=== PATIENT | female | born 1955 | race Caucasian/White ===

== ENCOUNTER 2019-10-19 14:20 | Outpatient (CLI) | payer MEDICARE ==
[2019-10-20 11:23] VITALS: BMI 24.5
== END 2019-10-19 16:48 | disposition other institution (70) ==
LOC: D.OPS 14:20
PROVIDERS: ATTEND Internal Medicine Nephrology
DX: N17.9 Acute kidney failure, unspecified (principal); I21.4 Non-ST elevation (NSTEMI) myocardial infarction; E43 Unspecified severe protein-calorie malnutrition; F17.203 Nicotine dependence unspecified, with withdrawal; E11.22 Type 2 diabetes mellitus with diabetic chronic kidney disease; I12.9 Hypertensive chronic kidney disease with stage 1 through stage 4 chronic kidney disease, or unspecified chronic kidney disease; N18.9 Chronic kidney disease, unspecified; I25.10 Atherosclerotic heart disease of native coronary artery without angina pectoris; Z68.24 Body mass index [BMI] 24.0-24.9, adult; E78.5 Hyperlipidemia, unspecified; Z86.73 Personal history of transient ischemic attack (TIA), and cerebral infarction without residual deficits; R07.9 Chest pain, unspecified

== ENCOUNTER 2019-10-19 14:20 | Inpatient (IN) | payer MEDICARE ==
[~2019-10-19] VITALS: Ht 149.9 cm; Wt 56.5 kg
[2019-10-19 15:04] LABS: CALC OSMOLALITY 290 mosm/kg (275-300); CALCIUM 7.6 mg/dL (8.5-10.1); CARBON DIOXIDE 21.3 mmol/L (21.0-32.0); CHLORIDE - SERUM 108 mmol/L (98-107); CREATININE - SERUM 2.6 mg/dL (0.6-1.3); GLUCOSE 118 mg/dL (74-106); POTASSIUM - SERUM 4.4 mmol/L (3.5-5.1); SODIUM 137 mmol/L (136-145); UREA NITROGEN 57 mg/dL (7-18); eGFR NON AFRICAN AMERICAN 20 mL/min (90-120)
[2019-10-19 15:17] LABS: BASOPHILS 0.3 % (0-2); EOSINOPHILS 5.7 % (0-7); HEMATOCRIT 38.9 % (36.0-48.0); HEMOGLOBIN 13.1 g/dL (12-16); IMMATURE GRANULOCYTES 0.3 % (0-5); LYMPHOCYTES 31.4 % (15-50); MCH 31.3 pg (26.0-34.0); MCHC 33.7 g/dL (31.0-37.0); MCV 93.1 fL (80.0-100.0); MEAN PLATELET VOLUME 9.7 fL (7.4-10.4); MONOCYTES 5.8 % (2-11); NEUTROPHILS 56.5 % (40-80); PLATELET COUNT 154 10x3/uL (130-400); RBC 4.18 10x6/uL (4.00-5.40); RDW 13.9 % (11.5-14.5); WBC 5.8 10x3/uL (4.8-10.8)
[2019-10-19 15:25] LABS: ALBUMIN 2.3 g/dL (3.4-5.0); ALKALINE PHOSPHATASE 34 U/L (30-120); ALT (SGPT) 31 U/L (10-68); BILIRUBIN - TOTAL 0.36 mg/dL (0.2-1.3); CKMB 3.6 U/L (0.0-3.6); CREATINE KINASE 559 UL (21-215); MAGNESIUM - SERUM 2.1 mg/dL (1.8-2.4); PROTEIN - SERUM 5.3 g/dL (6.4-8.2)
[2019-10-19 15:26] LABS: TROPONIN-I 0.097 ng/mL (0.000-0.060)
[2019-10-19 15:28] LABS: INR 1.04 (0.85-1.17); PROTIME 13.5 SECONDS (11.6-15.0)
[2019-10-19 18:32] VITALS: BP 156/74; BMI 24.5
--- NOTE | 2019-10-19 19:56 | NUR ---
INITIAL ROUNDS AND ASSESSMENT COMPLETED. NO DISTRESS. CALL LIGHT IN REACH. CPOC
[2019-10-19 20:30] VITALS: BP 141/65
[2019-10-20 00:30] VITALS: BP 114/75
--- NOTE | 2019-10-20 01:08 | NUR ---
MEDICATED WITH TYLENOL FOR HEADACHE. ALSO PT HAD C/O HER URINE BEING WHITE. HAT PLACED ON TOILET AND SPECIMEN OBTAINED. URINE IS WHITE/MILKY IN COLOR. NO ODOR NOTED. PT STATES THIS HAS BEEN GOING ON FOR 3 MONTHS. SPECIMEN TAKEN TO LAB.
[2019-10-20 01:09] LABS: NITRITE NEGATIVE (NEGATIVE)
[2019-10-20 01:10] LABS: BILIRUBIN NEGATIVE (NEGATIVE); GLUCOSE 500 mg/dL (NEGATIVE); KETONE SMALL mg/dL (NEGATIVE); UROBILINOGEN NORMAL (NORMAL); WHITE CELLS - URINE RARE /hpf (NEGATIVE)
[2019-10-20 03:46] LABS: BASOPHILS 0.4 % (0-2); EOSINOPHILS 6.1 % (0-7); HEMATOCRIT 36.4 % (36.0-48.0); HEMOGLOBIN 12.1 g/dL (12-16); IMMATURE GRANULOCYTES 0.2 % (0-5); LYMPHOCYTES 31.3 % (15-50); MCH 31.3 pg (26.0-34.0); MCHC 33.2 g/dL (31.0-37.0); MCV 94.3 fL (80.0-100.0); MEAN PLATELET VOLUME 10.2 fL (7.4-10.4); MONOCYTES 6.3 % (2-11); NEUTROPHILS 55.7 % (40-80); PLATELET COUNT 162 10x3/uL (130-400); RBC 3.86 10x6/uL (4.00-5.40); WBC 5.4 10x3/uL (4.8-10.8)
[2019-10-20 04:17] LABS: CHLORIDE - SERUM 110 mmol/L (98-107); CREATININE - SERUM 2.9 mg/dL (0.6-1.3); POTASSIUM - SERUM 4.2 mmol/L (3.5-5.1); SODIUM 137 mmol/L (136-145); UREA NITROGEN 55 mg/dL (7-18); eGFR NON AFRICAN AMERICAN 17 mL/min (90-120)
[2019-10-20 04:19] LABS: CALC OSMOLALITY 292 mosm/kg (275-300); CALCIUM 7.1 mg/dL (8.5-10.1); CARBON DIOXIDE 13.2 mmol/L (21.0-32.0); GLUCOSE 166 mg/dL (74-106); TROPONIN-I 0.087 ng/mL (0.000-0.060)
[2019-10-20 04:30] VITALS: BP 164/77
--- NOTE | 2019-10-20 05:23 | NUR ---
PT HAS BEEN NPO SINCE MIDNIGHT UNTIL SEEN BY SAFETY INTERN IN AM. C/O SOME TINY POINTS OF PAIN IN HER CHEST THAT COME AND GO, BUT NEVER REQUESTING ANY PAIN MEDICATION. UP AND DOWN TO BATHROOM INDEPENDENTLY. CPOC.
[2019-10-20 06:01] LABS: CKMB 3.1 U/L (0.0-3.6); CREATINE KINASE 501 UL (21-215)
--- NOTE | 2019-10-20 07:40 | NUR ---
PROVIDED PT WITH TOOTHBRUSH AND TOOTHPASTE. PT A/O X4, RESP EVEN AND NONLABORED ON RA. RT FA IV INFUSING NS AT 100CC/HR. MONITOR SHOWING SR WITH RATE OF 61. PT DENIES ANY NEEDS AT THIS TIME. CALL LIGHT IN REACH, NAD NOTED, WILL CONTINUE TO MONITOR.
[2019-10-20 08:48] VITALS: BP 172/86
--- NOTE | 2019-10-20 10:03 | NUR ---
CONSENTS SIGNED BY AND PRE-OP MEDS GIVEN AT THIS TIME. PT'S CONTACTED AND NOTIFIED ABOUT PROCEDURE SCHEDULED FOR TODAY.
--- NOTE | 2019-10-20 11:18 | NUR ---
BLOOD SUGAR OF 114, NO COVERAGE NEEDED PER S/S. PT RESTING COMFORTABLY IN BED, DENIES ANY NEEDS AT THIS TIME. CALL LIGHT IN REACH, NAD NOTED,W ILL CONTINUE TO MONITOR.
[2019-10-20 11:23] VITALS: Ht 149.9 cm; Wt 56.5 kg
[2019-10-20 12:06] LABS: CREATINE KINASE 472 UL (21-215)
[2019-10-20 12:16] LABS: TROPONIN-I 0.089 ng/mL (0.000-0.060)
[2019-10-20 12:59] VITALS: BP 183/89
--- NOTE | 2019-10-20 13:41 | NUR ---
WAS INFORMED BY DR. MCKINLEY THAT HEART CATH WAS CANCELLED FOR TODAY. NOTIFIED PT AND WILL NOTIFY PT'S .
[2019-10-20 16:58] LABS: BILIRUBIN NEGATIVE (NEGATIVE); GLUCOSE 250 mg/dL (NEGATIVE); KETONE NEGATIVE (NEGATIVE); NITRITE NEGATIVE (NEGATIVE); UROBILINOGEN NORMAL (NORMAL)
[2019-10-20 17:00] LABS: BACTERIA FEW /hpf (NEGATIVE); EPITHELIAL CELLS 0-5 /hpf (0-5)
[2019-10-20 17:12] LABS: CREATININE - URINE 32.8 mg/dL (30-125)
[2019-10-20 17:16] LABS: PRO/CRE RATIO URINE 13.6 mg/g; PROTEIN - URINE 447.2 mg/dL (0.0-11.9)
[2019-10-20 18:04] VITALS: BP 147/73
[2019-10-20 18:23] LABS: CKMB 2.6 U/L (0.0-3.6); CREATINE KINASE 417 UL (21-215)
[2019-10-20 18:28] LABS: TROPONIN-I 0.084 ng/mL (0.000-0.060)
[2019-10-20 20:00] VITALS: BP 199/74
--- NOTE | 2019-10-20 20:00 | NUR ---
INITIAL ROUNDS AND ASSESSMENT COMPLETED. NO DISTRESS. NONLABORED RESPIRATIONS. SEE SHIFT ASSESSMENT. CPOC. CALL LIGHT IN REACH.
[2019-10-21] VITALS: BP 177/76
[2019-10-21 04:00] VITALS: BP 137/62
[2019-10-21 06:51] LABS: BASOPHILS 0.4 % (0-2); EOSINOPHILS 5.4 % (0-7); HEMATOCRIT 37.7 % (36.0-48.0); HEMOGLOBIN 12.6 g/dL (12-16); IMMATURE GRANULOCYTES 0.2 % (0-5); LYMPHOCYTES 26.8 % (15-50); MCH 31.2 pg (26.0-34.0); MCHC 33.4 g/dL (31.0-37.0); MCV 93.3 fL (80.0-100.0); MEAN PLATELET VOLUME 10.1 fL (7.4-10.4); MONOCYTES 8.7 % (2-11); NEUTROPHILS 58.5 % (40-80); PLATELET COUNT 162 10x3/uL (130-400); RBC 4.04 10x6/uL (4.00-5.40); RDW 13.8 % (11.5-14.5); WBC 5.2 10x3/uL (4.8-10.8)
[2019-10-21 07:13] LABS: ANION GAP 12.3 mmol/L (8-16); BILIRUBIN - TOTAL 0.14 mg/dL (0.2-1.3); CALCIUM 7.7 mg/dL (8.5-10.1); CREATININE - SERUM 2.4 mg/dL (0.6-1.3); MAGNESIUM - SERUM 1.8 mg/dL (1.8-2.4); POTASSIUM - SERUM 4.3 mmol/L (3.5-5.1); PROTEIN - SERUM 4.9 g/dL (6.4-8.2)
--- NOTE | 2019-10-21 07:55 | NUR ---
4MG OF MORPHINE GIVEN FOR PAIN LEVEL OF 4/10. PT DENIES ANY OTHER NEEDS AT THIS TIME. CALL LIGHT IN REACH, NAD NOTED, WILL CONTINUE PLAN OF CAER.
[2019-10-21 10:37] VITALS: BP 135/63
--- NOTE | 2019-10-21 11:07 | NUR ---
BLOOD SUGAR OF 125, NO COVERAGE PER S/S. PER DR. MCKINLEY HEART CATH IS ON HOLD. PT DENIES ANY NEED AT THIS TIME. CALL LIGHT IN REACH, NAD NOTED, WILL CONTINUE TO MONITOR.
[2019-10-21 12:30] LABS: CKMB 2.3 U/L (0.0-3.6); CREATINE KINASE 374 UL (21-215)
[2019-10-21 12:31] LABS: TROPONIN-I 0.101 ng/mL (0.000-0.060)
[2019-10-21 14:17] VITALS: BP 186/74
--- NOTE | 2019-10-21 14:29 | NUR ---
SHOWER AND COMPLETE LINEN CHANGE.
[2019-10-21 18:29] LABS: CKMB 0.4 U/L (0.0-3.6); CREATINE KINASE 19 UL (21-215); TROPONIN-I 0.097 ng/mL (0.000-0.060)
--- NOTE | 2019-10-21 19:19 | NUR ---
ASSESSMENT COMPLETE, PT A&O. RESPERATIONS EVEN ON RA. IV TO RIGHT FOREARM WITH 1/2 NS AND BICARB INFUSING AT 75 CC/HR. IV SITE CLEAN AND DRY. EMPTIED 800 CC'S OF WHITE, CLOUDY URINE FROM HAT IN COMMODE. AT BED SIDE, BED LOW, CL IN REACH. PT DENIES PAIN OR NEEDS.
[2019-10-21 20:00] VITALS: BP 172/83
--- NOTE | 2019-10-21 23:28 | NUR ---
ORTHOPEDIC PODIATRIST AT BED SIDE TO OBTAIN VITALS.
[2019-10-21 23:41] LABS: CKMB 2.1 U/L (0.0-3.6)
[2019-10-21 23:42] LABS: CREATINE KINASE 339 UL (21-215); TROPONIN-I 0.089 ng/mL (0.000-0.060)
[2019-10-22] VITALS: BP 150/80
[2019-10-22 04:00] VITALS: BP 158/85
[2019-10-22 06:17] LABS: BASOPHILS 0.2 % (0-2); HEMATOCRIT 37.1 % (36.0-48.0); HEMOGLOBIN 12.3 g/dL (12-16); IMMATURE GRANULOCYTES 0.2 % (0-5); LYMPHOCYTES 27.7 % (15-50); MCH 30.8 pg (26.0-34.0); MCHC 33.2 g/dL (31.0-37.0); MCV 92.8 fL (80.0-100.0); MONOCYTES 7.7 % (2-11); NEUTROPHILS 60.2 % (40-80); PLATELET COUNT 164 10x3/uL (130-400); RDW 13.8 % (11.5-14.5); WBC 5.5 10x3/uL (4.8-10.8)
[2019-10-22 06:31] LABS: ALBUMIN 2.2 g/dL (3.4-5.0); BILIRUBIN - TOTAL 0.17 mg/dL (0.2-1.3); CALCIUM 7.5 mg/dL (8.5-10.1); CARBON DIOXIDE 25.4 mmol/L (21.0-32.0); MAGNESIUM - SERUM 1.8 mg/dL (1.8-2.4); POTASSIUM - SERUM 4.4 mmol/L (3.5-5.1); PROTEIN - SERUM 4.6 g/dL (6.4-8.2)
--- NOTE | 2019-10-22 06:58 | NUR ---
ASSESSMENT DONE. DENIES NEEDS
--- NOTE | 2019-10-22 09:09 | NUR ---
I have reviewed this patient and I concur with the Shift Assessment completed by the Licensed Practical Nurse today this shift.
[2019-10-22 09:30] VITALS: BP 140/71
[2019-10-22 11:52] VITALS: BP 153/89
[2019-10-22 13:44] LABS: CALCIUM 7.1 mg/dL (8.5-10.1); CARBON DIOXIDE 25.4 mmol/L (21.0-32.0); CREATININE - SERUM 3.4 mg/dL (0.6-1.3); POTASSIUM - SERUM 4.4 mmol/L (3.5-5.1)
--- NOTE | 2019-10-22 17:08 | NUR ---
WITHOUT CHANGES OR DISTRESS NOTED AT THIS TIME. DENIES NEEDS
[2019-10-22 17:47] VITALS: BP 161/78
[2019-10-22 20:00] VITALS: BP 178/79
[2019-10-23] VITALS: BP 180/75
--- NOTE | 2019-10-23 02:40 | NUR ---
I have reviewed this patient and I concur with the Shift Assessment completed by the Licensed Practical Nurse today this shift.
[2019-10-23 04:00] VITALS: BP 184/87
[2019-10-23 06:32] LABS: BASOPHILS 0.4 % (0-2); EOSINOPHILS 5.6 % (0-7); HEMATOCRIT 38.3 % (36.0-48.0); HEMOGLOBIN 12.7 g/dL (12-16); IMMATURE GRANULOCYTES 0.4 % (0-5); LYMPHOCYTES 30.2 % (15-50); MCH 30.8 pg (26.0-34.0); MCHC 33.2 g/dL (31.0-37.0); MEAN PLATELET VOLUME 10.1 fL (7.4-10.4); MONOCYTES 7.4 % (2-11); PLATELET COUNT 173 10x3/uL (130-400); RBC 4.12 10x6/uL (4.00-5.40); RDW 13.7 % (11.5-14.5); WBC 5.7 10x3/uL (4.8-10.8)
[2019-10-23 06:52] LABS: ALBUMIN 2.3 g/dL (3.4-5.0); ANION GAP 13.5 mmol/L (8-16); BILIRUBIN - TOTAL 0.2 mg/dL (0.2-1.3); CALCIUM 7.8 mg/dL (8.5-10.1); CARBON DIOXIDE 21.7 mmol/L (21.0-32.0); CREATININE - SERUM 2.7 mg/dL (0.6-1.3); MAGNESIUM - SERUM 1.9 mg/dL (1.8-2.4); POTASSIUM - SERUM 4.2 mmol/L (3.5-5.1); PROTEIN - SERUM 5.2 g/dL (6.4-8.2)
--- NOTE | 2019-10-23 07:24 | NUR ---
ASSESSMENT DONE. DENIES NEEDS
[2019-10-23 08:11] LABS: HEPATITIS C ANTIBODY <0.1 S/CO RAT (0.0-0.9)
[2019-10-23 09:25] VITALS: BP 166/71
--- NOTE | 2019-10-23 09:26 | NUR ---
I have reviewed this patient and I concur with the Shift Assessment completed by the Licensed Practical Nurse today this shift.
[2019-10-23 10:10] LABS: CREATININE - URINE 30.6 mg/dL (Not Estab.); MICROALBUMIN - URINE 1957.3 ug/mL (Not Estab.)
--- NOTE | 2019-10-23 12:23 | NUR ---
PAGE INTO ESTIVEN DESOUZA APN PATIENT IS NOT ON ANY MEDS FOR NSTEMI DX. AWAITING CALL BACK.
--- NOTE | 2019-10-23 12:26 | NUR ---
ESTIVEN DESOUZA APN TO CALL BACK WITH NEW ORDERS.
[2019-10-23] MEDS ORDERED: BAYER CHEWABLE81 MG PO (12:28)
[2019-10-23] MEDS ORDERED: LIPITOR20 MG PO (12:30)
[2019-10-23] MEDS ORDERED: LOPRESSOR25 MG PO (12:31)
[2019-10-23 13:15] VITALS: BP 145/85
--- NOTE | 2019-10-23 13:55 | NUR ---
DC GIVEN TP PT
--- NOTE | 2019-10-23 14:10 | NUR ---
DC HOME PER PERSONAL CAR
--- NOTE | 2019-10-23 15:47 | MORECARE ---
CASE MANAGEMENT DISCHARGE SUMMARY PATIENT: KELSEA JONES UNIT: [id number] ADM DATE: 10/19/19 AGE: 64 : 53 SEX: F ROOM/BED: D.0256 AUTHOR: JASWANT,DOC PHYSICIAN: REFERRING PHYSICIAN: KERRY PEREYRA MD DATE OF SERVICE: 10/23/19 Discharge Plan Patient Name: KELSEA JONES Facility: [facility]:[place] : 1955 Planned Disposition: Home Anticipated Discharge Date: 10/23/19 Discharge Date: 10/23/2019 Expected LOS: 4 Initial Reviewer: [email or web address] Initial Review Date: 10/19/2019 Generated: 10/23/19 4:46 pm Comments DCP- Discharge Planning Updated by [email or web address]: Bren Mendez on 10/23/19 2:[address] Patient Name: KELSEA JONES Admission Status: ER Accout number: [id number] Admission Date: 10-19-2019 : 1955 Admission Diagnosis: Attending: KERRY PEREYRA Current LOS: 4 Anticipated DC Date: 10-23-2019 Planned Disposition: Home Primary Insurance: MEDICARE PART A ONLY Discharge Planning Comments: CM met with patient to complete initial dc planning assessment. CM educated patient on the CM role and verbal consent given by patient to complete assessment. CM verified patient's address, phone number, and emergency contact phone numbers. Patient lives at home with Candy her [phone]. At discharge patient plans to return and feels this is a safe discharge. CM discussed availability of home health, rehab services, and medical equipment. Patient denied known discharge needs at this time. Transportation provider at discharge will be her . DC IMM delivered, explained, signed by the patient, and placed in his chart. Signed form also left with patient. CM will continue to follow and will assist as needed with dc plans/needs. Ceramic Sprayer: Bren Mendez DCPIA - Discharge Planning Initial Assessment Updated by [email or web address]: Bren Mendez on 10/23/19 3:43 pm * Is the patient Alert and Oriented? Yes * How many steps to enter\exit or inside your home? 0/0 * PCP [facility] * Pharmacy [facility] * Preadmission Environment Home with Family * ADLs Independent * List name and contact numbers for known caregivers / representatives who currently or will assist patient after discharge: CANDY [phone] * Verbal permission to speak to the caregivers and representatives has been obtained from the patient. Yes * Community resources currently utilized None * Additional services required to return to the preadmission environment? No * Can the patient safely return to the preadmission environment? Yes * Has this patient been hospitalized within the prior 30 days at any hospital? No Coverage Notice Reviewer: [id number] Kwame Mendez Notice Issued Date-Time: 10/23/2019 15:38 Notice Type: IM Discharge Notice Notice Delivered To: Patient Relationship to Patient: Inspector Barrel Name: Delivery Method: HAND - Hand Delivered Gi Days: Prior Verbal Notification: Recipient Understood Notice: Yes Recipient Signature: Yes Med Rec Note Co-signed by Attending: Coverage Notice Comment: DC IMM delivered, explained, signed by the patient, and placed in his chart. Signed form also left with patient. Patient Name: KELSEA JONES Page [phone] at 1547 All edits/amendments must be made on the electronic document DICTATION DATE: 10/23/191545 SEISMOLOGY TEACHER: PATIENCE 10/23/19 154 RPT#: [id number] DC DATE:10/23/19 STATUS: DIS IN [facility] [address] [place] [address] END OF REPORT
== END 2019-10-23 14:11 | disposition home or self-care (01) | DRG 682 ==
LOC: D.ER 14:20 → D.M2 16:48 → D.ER 17:10 → D.M2 10-23 14:11
PROVIDERS: Family Medicine; Internal Medicine; ADMIT Internal Medicine Nephrology; ATTEND Internal Medicine Nephrology
DX: N17.9 Acute kidney failure, unspecified (principal); I21.4 Non-ST elevation (NSTEMI) myocardial infarction; E43 Unspecified severe protein-calorie malnutrition; F17.203 Nicotine dependence unspecified, with withdrawal; E11.22 Type 2 diabetes mellitus with diabetic chronic kidney disease; I12.9 Hypertensive chronic kidney disease with stage 1 through stage 4 chronic kidney disease, or unspecified chronic kidney disease; N18.9 Chronic kidney disease, unspecified; I25.10 Atherosclerotic heart disease of native coronary artery without angina pectoris; Z68.24 Body mass index [BMI] 24.0-24.9, adult; E78.5 Hyperlipidemia, unspecified; Z86.73 Personal history of transient ischemic attack (TIA), and cerebral infarction without residual deficits

== ENCOUNTER 2020-03-08 22:25 | Inpatient (IN) | payer MEDICAID, MEDICARE ==
[~2020-03-08] VITALS: Ht 149.9 cm; Wt 64.1 kg
--- NOTE | ~2020-03-08 | OP ---
PATIENT NAME: KELSEA JONES MEDICAL RECORD: [id number] :53 LOCATION:.[facility] D.2315 ADMISSION DATE:03/08/20 SURGEON: STEVEN MICHELLE MD DATE OF OPERATION: 03/12/2020 PREOPERATIVE DIAGNOSES: 1. Hypotension, on pressors. 2. Septic shock. 3. COVID-19. POSTOPERATIVE DIAGNOSES: 1. Hypotension, on pressors. 2. Septic shock. 3. COVID-19. PROCEDURE: Placement of right common femoral arterial line for continuous hemodynamic monitoring. SURGEON: Steven Michelle MD ROLL FILLER: None. BLOOD LOSS: Minimal. ANESTHESIA: Local. INDICATION: The procedure was performed at the patient's bedside. The patient has small blood vessels. I know this from prior attempts at placement of venous catheter. Therefore, I wanted to place a line in the groin. She does not have a significant panniculus and does not have a lot of overlapping skin, which could predispose her to a line infection. DESCRIPTION OF PROCEDURE: The right groin was sterilely prepped and draped. A local anesthetic was used to infiltrate the skin and subcutaneous tissues overlying the right common femoral artery. I percutaneously accessed the right common femoral artery in a retrograde fashion. A guidewire passed easily. A small skin mila was accomplished. An Angiocath-type catheter was inserted over the wire. This was a long catheter. The wire was removed. There was pulsatile blood coming from the long catheter. This was attached to a flushed transducer tubing. The arterial line was then sutured in place times 3. There was an excellent waveform on the monitor. A sterile dressing was applied. NTS:[id number] Voice Confirmation ID: [id number] DOCUMENT ID: [id number] STEVEN MICHELLE MD CC: [id number] DICTATION DATE: 03/19/20 1521 SAILING MASTER: 03/19/20 1828 DIS IN 03/17/20 [facility] [address] [place] [id number]
--- NOTE | ~2020-03-08 | OP ---
PATIENT NAME: KELSEA JONES MEDICAL RECORD: [id number] :53 LOCATION:D.[facility] D.2315 ADMISSION DATE:03/08/20 SURGEON: RUDY GIFFORD MD DATE OF OPERATION: 03/14/2020 PREOPERATIVE DIAGNOSES: 1. Right pneumothorax. 2. COVID positive. 3. Acute respiratory failure, on the ventilator. 4. Sdgxo-fm-meixkfy kidney disease. POSTOPERATIVE DIAGNOSES: 1. Right pneumothorax. 2. COVID positive. 3. Acute respiratory failure, on the ventilator. 4. Wusku-yb-iyfwnjn kidney disease. PROCEDURE: Right 20-Latvian chest tube placement. SURGEON: Rudy Gifford MD REPORT OF PROCEDURE: The patient's right chest was prepped and draped in sterile fashion. A skin incision was made with a 15-blade and using blunt dissection I came up to the ribs. I was able to insert a 20-Latvian chest tube with the catheter into the right chest and upon doing this there was a spillage of a decent amount of air and no sign of any active bleeding. We sutured this chest tube into place with an 0 nylon and then dressed it with 4 x 4s and tape. [facility], which had a leak temporarily which quickly resolved. COMPLICATIONS: None. CONDITION: Critical. ANESTHESIA: General endotracheal. BLOOD LOSS: Minimal. Procedure done in the ICU at the bedside. TRANSINT:[id number] Voice Confirmation ID: [id number] DOCUMENT ID: [id number] RUDY GIFFORD MD CC: [id number] DICTATION DATE: 03/14/20 1315 WORLDWIDE CHIEF CREATIVE OFFICER: 03/14/20 1450 ADM IN [place] [id number] [place] [address]
[~2020-03-08 22:25] MED LIST: BAYER CHEWABLE81 MG PO; LIPITOR20 MG PO; LOPRESSOR25 MG PO
[2020-03-08 22:30] VITALS: BP 145/86
[2020-03-08 23:00] VITALS: BP 152/80
[2020-03-08 23:20] VITALS: BMI 22.7
[2020-03-09] VITALS (24 sets, daily range): BP systolic 126–183; BP diastolic 75–97; BMI 22.0
--- NOTE | 2020-03-09 | NUR ---
2229- PATIENT ARRIVED VIA EMS. LABORED BREATHING. NON-REBREATHER ON AND NC ON AT 6L. REC'D ABG AND NEW ORDERS FROM DR. DRUMMOND.
[2020-03-09 00:18] LABS: D-DIMER-QUANTITATIVE 1.56 ug/mLFEU (0.20-0.54)
[2020-03-09 00:19] LABS: APTT 42.5 SECONDS (22.8-39.4); INR 1.43 (0.85-1.17); PROTIME 17.3 SECONDS (11.6-15.0)
[2020-03-09 01:02] LABS: CKMB 14.5 U/L (0.0-3.6); CREATINE KINASE 401 UL (21-215); MAGNESIUM - SERUM 3.2 mg/dL (1.8-2.4); PRO BNP 3131 pg/mL (0-125)
[2020-03-09 01:16] LABS: TROPONIN-I 0.093 ng/mL (0.000-0.060)
[2020-03-09 01:20] LABS: CALCIUM 8.5 mg/dL (8.5-10.1); CREATININE - SERUM 4.7 mg/dL (0.6-1.3); POTASSIUM - SERUM 5.8 mmol/L (3.5-5.1)
[2020-03-09 01:21] LABS: ANION GAP 22.5 mmol/L (8-16)
[2020-03-09 01:22] LABS: CARBON DIOXIDE 9.3 mmol/L (21.0-32.0)
[2020-03-09 07:21] LABS: ALBUMIN 1.6 g/dL (3.4-5.0); ALKALINE PHOSPHATASE 89 U/L (30-120); ALT (SGPT) 31 U/L (10-68); BILIRUBIN - TOTAL 0.21 mg/dL (0.2-1.3); CALCIUM 8.3 mg/dL (8.5-10.1); CREATINE KINASE 428 UL (21-215); CREATININE - SERUM 5.1 mg/dL (0.6-1.3); GLUCOSE 273 mg/dL (74-106); MAGNESIUM - SERUM 3.3 mg/dL (1.8-2.4); PROTEIN - SERUM 5.2 g/dL (6.4-8.2); eGFR NON AFRICAN AMERICAN 9 mL/min (90-120)
--- NOTE | 2020-03-09 07:25 | NUR ---
PAGED DR LYN. AWAITING CALL BACK.
[2020-03-09 07:26] LABS: CALC OSMOLALITY 375 mosm/kg (275-300); CARBON DIOXIDE 14.6 mmol/L (21.0-32.0); CHLORIDE - SERUM 137 mmol/L (98-107); CKMB 20.6 U/L (0.0-3.6); SODIUM 167 mmol/L (136-145); TROPONIN-I 0.096 ng/mL (0.000-0.060); UREA NITROGEN 114 mg/dL (7-18)
[2020-03-09 07:52] LABS: HEMOGLOBIN 10.9 g/dL (12-16); MCH 30.4 pg (26.0-34.0); MCV 92.2 fL (80.0-100.0); PLATELET COUNT 165 10x3/uL (130-400); RBC 3.58 10x6/uL (4.00-5.40); RDW 15.4 % (11.5-14.5)
--- NOTE | 2020-03-09 09:24 | NUR ---
PAGED RENAL OFFICE. THEY STATED THEY WOULD HAVE DR DESHPANDE CALL BACK.
--- NOTE | 2020-03-09 09:59 | NUR ---
RENAL FINANCIAL AID MANAGER SPEAKING WITH . GIVING UPDATE. WILL CONTINUE TO MONITOR
[2020-03-09 11:09] LABS: CALCIUM 8.1 mg/dL (8.5-10.1); CARBON DIOXIDE 12.4 mmol/L (21.0-32.0)
[2020-03-09 11:13] LABS: ANION GAP 21.3 mmol/L (8-16); POTASSIUM - SERUM 4.7 mmol/L (3.5-5.1)
[2020-03-09 11:41] LABS: BACTERIA FEW HPF (NONE SEEN); BILIRUBIN NEGATIVE (NEGATIVE); EPITHELIAL CELLS OCC /hpf (0-5); KETONE NEGATIVE (NEGATIVE); NITRITE NEGATIVE (NEGATIVE); UROBILINOGEN NORMAL mg/dL (< 2); YEAST >1+ WITH HYPHAE /hpf (NONE SEEN)
[2020-03-09 12:19] LABS: ANISOCYTOSIS OCC; LYMPHOCYTES 8 % (15-50); MONOCYTES 7 % (2-11); NEUTROPHILS 82 % (40-80); PLATELET ESTIMATE NORMAL
[2020-03-09 17:29] LABS: CALCIUM 8.7 mg/dL (8.5-10.1); CARBON DIOXIDE 13.5 mmol/L (21.0-32.0); CKMB 16.2 U/L (0.0-3.6); CREATINE KINASE 429 UL (21-215); CREATININE - SERUM 5.1 mg/dL (0.6-1.3); GLUCOSE 283 mg/dL (74-106); POTASSIUM - SERUM 4.8 mmol/L (3.5-5.1); eGFR NON AFRICAN AMERICAN 9 mL/min (90-120)
[2020-03-09 17:31] LABS: CALC OSMOLALITY 382 mosm/kg (275-300)
[2020-03-09 17:32] LABS: TROPONIN-I 0.155 ng/mL (0.000-0.060)
[2020-03-09 17:33] LABS: CHLORIDE - SERUM 136 mmol/L (98-107); SODIUM 167 mmol/L (136-145); UREA NITROGEN 133 mg/dL (7-18)
[2020-03-09 21:24] LABS: CALCIUM 8.3 mg/dL (8.5-10.1); POTASSIUM - SERUM 4.1 mmol/L (3.5-5.1)
[2020-03-09 21:43] LABS: ANION GAP 20.5 mmol/L (8-16); CARBON DIOXIDE 17.6 mmol/L (21.0-32.0)
[2020-03-10] VITALS (17 sets, daily range): BP systolic 106–167; BP diastolic 31–117
[2020-03-10 02:10] LABS: CALCIUM 8.3 mg/dL (8.5-10.1); CARBON DIOXIDE 19.9 mmol/L (21.0-32.0); CREATININE - SERUM 4.9 mg/dL (0.6-1.3); POTASSIUM - SERUM 4.2 mmol/L (3.5-5.1)
[2020-03-10 02:12] LABS: ANION GAP 17.3 mmol/L (8-16)
[2020-03-10 06:07] LABS: HEMATOCRIT 28.9 % (36.0-48.0); HEMOGLOBIN 9.6 g/dL (12-16); RBC 3.24 10x6/uL (4.00-5.40); WBC 21.2 10x3/uL (4.8-10.8)
[2020-03-10 06:08] LABS: MCH 29.6 pg (26.0-34.0); MCHC 33.2 g/dL (31.0-37.0); MCV 89.2 fL (80.0-100.0); MEAN PLATELET VOLUME 11.8 fL (7.4-10.4); PLATELET COUNT 120 10x3/uL (130-400)
[2020-03-10 06:54] LABS: ALBUMIN 1.4 g/dL (3.4-5.0); BILIRUBIN - TOTAL 0.25 mg/dL (0.2-1.3); CALCIUM 8.2 mg/dL (8.5-10.1); CARBON DIOXIDE 18.7 mmol/L (21.0-32.0); CREATININE - SERUM 4.9 mg/dL (0.6-1.3); MAGNESIUM - SERUM 2.9 mg/dL (1.8-2.4); POTASSIUM - SERUM 3.9 mmol/L (3.5-5.1); PROTEIN - SERUM 5.1 g/dL (6.4-8.2)
[2020-03-10 07:16] LABS: ANION GAP 16.2 mmol/L (8-16)
[2020-03-10 07:36] LABS: EOSINOPHILS 1 % (0-7); LYMPHOCYTES 1 % (15-50); NEUTROPHILS 98 % (40-80); PLATELET ESTIMATE DECREASED
[2020-03-10 10:23] LABS: CARBON DIOXIDE 19.3 mmol/L (21.0-32.0); CREATININE - SERUM 4.7 mg/dL (0.6-1.3); POTASSIUM - SERUM 4.1 mmol/L (3.5-5.1)
[2020-03-10 10:25] LABS: ANION GAP 17.8 mmol/L (8-16)
[2020-03-10 12:26] LABS: CALCIUM 8.1 mg/dL (8.5-10.1); POTASSIUM - SERUM 3.7 mmol/L (3.5-5.1)
[2020-03-10 12:31] LABS: ANION GAP 17.2 mmol/L (8-16); CARBON DIOXIDE 24.5 mmol/L (21.0-32.0); CREATININE - SERUM 2.4 mg/dL (0.6-1.3)
[2020-03-10 18:57] LABS: ANION GAP 13.2 mmol/L (8-16); CALCIUM 7.4 mg/dL (8.5-10.1); CARBON DIOXIDE 24.6 mmol/L (21.0-32.0); POTASSIUM - SERUM 3.8 mmol/L (3.5-5.1)
[2020-03-10 19:04] LABS: CREATININE - SERUM 3.3 mg/dL (0.6-1.3)
[2020-03-11] VITALS (24 sets, daily range): BP systolic 119–178; BP diastolic 59–98
[2020-03-11 01:40] LABS: ANION GAP 13.5 mmol/L (8-16); CALCIUM 7.9 mg/dL (8.5-10.1); CARBON DIOXIDE 22.3 mmol/L (21.0-32.0); CREATININE - SERUM 3.7 mg/dL (0.6-1.3); POTASSIUM - SERUM 3.8 mmol/L (3.5-5.1)
[2020-03-11 04:53] LABS: BASOPHILS 0 % (0-2); EOSINOPHILS 0.1 % (0-7); HEMATOCRIT 26.1 % (36.0-48.0); HEMOGLOBIN 8.6 g/dL (12-16); IMMATURE GRANULOCYTES 0.6 % (0-5); LYMPHOCYTES 1.5 % (15-50); MCH 29.1 pg (26.0-34.0); MCV 88.2 fL (80.0-100.0); MEAN PLATELET VOLUME 11.7 fL (7.4-10.4); MONOCYTES 2.2 % (2-11); NEUTROPHILS 95.6 % (40-80); PLATELET COUNT 98 10x3/uL (130-400); RBC 2.96 10x6/uL (4.00-5.40); RDW 14.6 % (11.5-14.5); WBC 18.8 10x3/uL (4.8-10.8)
[2020-03-11 05:07] LABS: PLATELET ESTIMATE DECREASED
[2020-03-11 05:13] LABS: ALBUMIN 1.4 g/dL (3.4-5.0); ANION GAP 13.2 mmol/L (8-16); BILIRUBIN - TOTAL 0.24 mg/dL (0.2-1.3); CALCIUM 7.6 mg/dL (8.5-10.1); CARBON DIOXIDE 22.7 mmol/L (21.0-32.0); CREATININE - SERUM 3.7 mg/dL (0.6-1.3); POTASSIUM - SERUM 3.9 mmol/L (3.5-5.1); PROTEIN - SERUM 4.8 g/dL (6.4-8.2)
[2020-03-11 05:22] LABS: MAGNESIUM - SERUM 2.1 mg/dL (1.8-2.4)
[2020-03-11 08:54] LABS: ANION GAP 13.9 mmol/L (8-16); CALCIUM 7.6 mg/dL (8.5-10.1); CREATININE - SERUM 3.8 mg/dL (0.6-1.3); POTASSIUM - SERUM 3.9 mmol/L (3.5-5.1)
--- NOTE | 2020-03-11 12:44 | NUR ---
PER DR. DRUMMOND PATIENT ON NRB @5354
--- NOTE | 2020-03-11 13:41 | NUR ---
Nutrition follow-up: Pt resting with BIPAP in place NPO continues Labs reviewed Pt has started dialysis this admission Recommend short-term ProcalAmine PPN @ 60 ml/hr if medically feasible. RDN following.
[2020-03-11 22:14] LABS: HEMATOCRIT 25.9 % (36.0-48.0); HEMOGLOBIN 8.8 g/dL (12-16)
[2020-03-11 22:22] LABS: ANION GAP 15.9 mmol/L (8-16); CALCIUM 7.6 mg/dL (8.5-10.1); CARBON DIOXIDE 21.3 mmol/L (21.0-32.0); CREATININE - SERUM 4.2 mg/dL (0.6-1.3); POTASSIUM - SERUM 4.2 mmol/L (3.5-5.1)
[2020-03-12] VITALS (24 sets, daily range): BP systolic 98–214; BP diastolic 60–100
[2020-03-12 06:45] LABS: ALBUMIN 1.5 g/dL (3.4-5.0); BILIRUBIN - TOTAL 0.19 mg/dL (0.2-1.3); CALCIUM 7.7 mg/dL (8.5-10.1); CREATININE - SERUM 4.2 mg/dL (0.6-1.3); MAGNESIUM - SERUM 2.2 mg/dL (1.8-2.4); PROTEIN - SERUM 4.9 g/dL (6.4-8.2)
--- NOTE | 2020-03-12 07:10 | NUR ---
RECEIVED REPORT, PATIENT IN BED, EYES CLOSED, BPAP AT 100%, WILL DO COMPLETE ASSESSMENT AND CHANGED THROUGHOUT DAY.
[2020-03-12 08:08] LABS: HEMATOCRIT 23.6 % (36.0-48.0); HEMOGLOBIN 8.2 g/dL (12-16); LYMPHOCYTES 2.7 % (15-50); MCH 30.6 pg (26.0-34.0); MCHC 34.7 g/dL (31.0-37.0); MCV 88.1 fL (80.0-100.0); MEAN PLATELET VOLUME 12.2 fL (7.4-10.4); NEUTROPHILS 94.6 % (40-80); PLATELET COUNT 84 10x3/uL (130-400); RBC 2.68 10x6/uL (4.00-5.40); RDW 14.5 % (11.5-14.5); WBC 19.4 10x3/uL (4.8-10.8)
[2020-03-12 08:43] LABS: PLATELET ESTIMATE DECREASED
[2020-03-12 13:27] LABS: HEMATOCRIT 23.9 % (36.0-48.0); HEMOGLOBIN 8.1 g/dL (12-16)
--- NOTE | 2020-03-12 14:00 | NUR ---
DR. CID INTUBATED PATIENT WITH SETTINGS AT 200/400/100/10 AND AT 1415 PATIENT HAD G-TUBE DROPPED. AWAITING XRAY TO CONFIRM.
--- NOTE | 2020-03-12 16:43 | NUR ---
MOVED ETT TO 19CM @ LIP
--- NOTE | 2020-03-12 17:53 | NUR ---
DR MICHELLE HERE AND PLACED ARTERIAL LINE, PATIENT TOLERATED PROCEDURE WELL.
[2020-03-12 22:17] LABS: HEMATOCRIT 22.4 % (36.0-48.0); HEMOGLOBIN 7.6 g/dL (12-16)
[2020-03-13] VITALS (24 sets, daily range): BP systolic 107–1233; BP diastolic 61–610
[2020-03-13 07:31] LABS: BASOPHILS 0 % (0-2); EOSINOPHILS 0.1 % (0-7); IMMATURE GRANULOCYTES 0.8 % (0-5); LYMPHOCYTES 4.2 % (15-50); MCH 29.7 pg (26.0-34.0); MCHC 33.8 g/dL (31.0-37.0); MEAN PLATELET VOLUME 12.2 fL (7.4-10.4); MONOCYTES 2.7 % (2-11); NEUTROPHILS 92.2 % (40-80); RDW 13.5 % (11.5-14.5)
[2020-03-13 07:54] LABS: ALBUMIN 1.5 g/dL (3.4-5.0); ANION GAP 19.4 mmol/L (8-16); BILIRUBIN - TOTAL 0.22 mg/dL (0.2-1.3); CREATININE - SERUM 4.5 mg/dL (0.6-1.3); MAGNESIUM - SERUM 2.1 mg/dL (1.8-2.4); POTASSIUM - SERUM 4.4 mmol/L (3.5-5.1); PROTEIN - SERUM 4.7 g/dL (6.4-8.2)
[2020-03-13 07:57] LABS: HEMATOCRIT 29.3 % (36.0-48.0); HEMOGLOBIN 9.9 g/dL (12-16); PLATELET COUNT 61 10x3/uL (130-400); RBC 3.33 10x6/uL (4.00-5.40); WBC 11.1 10x3/uL (4.8-10.8)
[2020-03-13 10:18] LABS: HEMATOCRIT 20.9 % (36.0-48.0)
--- NOTE | 2020-03-13 12:31 | NUR ---
Nutrition follow-up: Pt now intubated NPO with OGT->LIWS labs reviewed Wt: 150# Will need nutrition support started within 24-48 hours Recommend Pulmocare @ 10 ml/hr with increase to goal rate of 40 ml/hr RDN following.
--- NOTE | 2020-03-13 15:20 | OP ---
PATIENT NAME: KELSEA JONES MEDICAL RECORD: [id number] :53 LOCATION:.[facility] D.2315 ADMISSION DATE:03/08/20 SURGEON: STEVEN MICHELLE MD DATE OF OPERATION: 03/09/2020 PREOPERATIVE DIAGNOSES: 1. Acute renal failure requiring hemodialysis. 2. COVID-19 pneumonia. POSTOPERATIVE DIAGNOSES: 1. Acute renal failure requiring hemodialysis. 2. COVID-19 pneumonia. 3. Inability to place a Trialysis catheter at the right internal jugular site. SURGEON: Steven Michelle MD SPRING INTERNSHIP: None. BLOOD LOSS: 25 cc. This procedure was made more difficult as the patient was agitated while on BiPAP and moved around a good bit during insertion of the catheter as well as the attempted insertions of the catheter. The procedure was done with additional supplemental local anesthesia. OPERATIVE COURSE: The patient was seen in her bed. The entire procedure was performed in the presence of a female nurse. The right neck was sterilely prepped and draped. A local anesthetic was used to infiltrate the skin and subcutaneous tissue at the base of the right neck. Attempts to percutaneously access the internal jugular vein failed. A sterile ultrasound demonstrated that the vein was collapsed even with the patient in Trendelenburg. We put the patient in steep Trendelenburg and still it would collapse with inspiration. I continued with additional attempts at the insertion of the Trialysis catheter at the internal jugular site; however, I could not gain access to the internal jugular vein due to this flattening with inspiration. Attempts at the right neck ceased. Pressure was held. It appears the patient is going have a subcutaneous hematoma from these attempts. The patient was then positioned in the steep reverse Trendelenburg position. The right groin was sterilely prepped and draped. Local anesthetic was used to infiltrate the skin and subcutaneous tissues overlying the right groin. Under ultrasonographic guidance, I percutaneously accessed the right common femoral vein with difficulty. A guidewire passed easily. A small skin mila was accomplished. A vessel dilator was used to dilate the subcutaneous tract. A 24 cm Trialysis catheter was inserted to the hub. It was sutured in place times 3. All lumens flushed easily and aspirated dark, nonpulsatile blood. A portable chest x-ray revealed no pneumothorax. This was done due to the attempts at the insertion of the Trialysis catheter at the right neck site. TRANSINT:[id number] Voice Confirmation ID: [id number] DOCUMENT ID: [id number] OPERATIVE REPORT [id number] KELSEA JONES, STEVEN MOELLER at 1520 CC: [id number] DICTATION DATE: 03/09/201753 BENEFITS ASSISTANT: 03/09/20 2321 ADM IN [place] [address] [place] [address]
--- NOTE | 2020-03-13 17:50 | NUR ---
PT HAD ANOTHER INCONTINENT BOWEL MOVEMENT. CLEANED AND REPOSITIONED.
[2020-03-14] VITALS (24 sets, daily range): BP systolic 90–168; BP diastolic 61–80
[2020-03-14 06:21] LABS: ALBUMIN 1.5 g/dL (3.4-5.0); ANION GAP 21.8 mmol/L (8-16); BILIRUBIN - TOTAL 0.34 mg/dL (0.2-1.3); CARBON DIOXIDE 17.1 mmol/L (21.0-32.0); CREATININE - SERUM 4.3 mg/dL (0.6-1.3); POTASSIUM - SERUM 4.9 mmol/L (3.5-5.1); PROTEIN - SERUM 5.2 g/dL (6.4-8.2)
[2020-03-14 06:24] LABS: CALCIUM 6.9 mg/dL (8.5-10.1)
--- NOTE | 2020-03-14 07:30 | NUR ---
DISCUSSED LOW NA W/ DR. ROGEL WHO AMENDS THE D5W ORDER.
[2020-03-14 08:07] LABS: BASOPHILS 0.1 % (0-2); EOSINOPHILS 0 % (0-7); LYMPHOCYTES 3.6 % (15-50); MCH 30.4 pg (26.0-34.0); MCV 86.8 fL (80.0-100.0); MEAN PLATELET VOLUME 11.7 fL (7.4-10.4); MONOCYTES 1.9 % (2-11); NEUTROPHILS 92.4 % (40-80); PLATELET COUNT 57 10x3/uL (130-400); RBC 3.49 10x6/uL (4.00-5.40); RDW 13.2 % (11.5-14.5)
[2020-03-14 08:08] LABS: HEMATOCRIT 30.3 % (36.0-48.0); HEMOGLOBIN 10.6 g/dL (12-16); WBC 16.8 10x3/uL (4.8-10.8)
--- NOTE | 2020-03-14 08:23 | NUR ---
DR BHANU RAJAN RT R PNX
--- NOTE | 2020-03-14 10:05 | NUR ---
SPOKE WITH DR DRUMMOND. CONSULT SURGERY FOR CT. DECREASE PEEP TO 7 AND INCREASE FIO2 100%.
--- NOTE | 2020-03-14 10:17 | NUR ---
DR GIFFORD NOTIFIED OF CONSULT.
--- NOTE | 2020-03-14 13:25 | NUR ---
TF BEGAN PER ORDER AT 10 CC/HR. PLACEMENT CONFIRMED W/ AIR BOLUS, WITHDRAW OF GASTRIC FLUID.
--- NOTE | 2020-03-14 14:04 | NUR ---
DR GIFFORD AT THE PTS BEDSIDE. HE PLACED A CHEST TUBES TO RIGHT LATERAL CHEST. CONNECTED TO 20 CM H2O SUCTION WITIH NO AIR LEAK NOTED. CXR ORDERED PER DR GIFFORD.
[2020-03-14 22:18] LABS: HEMATOCRIT 31.4 % (36.0-48.0); HEMOGLOBIN 10.9 g/dL (12-16)
[2020-03-15] VITALS (24 sets, daily range): BP systolic 92–153; BP diastolic 47–79
[2020-03-15 04:32] LABS: BASOPHILS 0.1 % (0-2); EOSINOPHILS 0 % (0-7); HEMATOCRIT 30.2 % (36.0-48.0); HEMOGLOBIN 10.4 g/dL (12-16); IMMATURE GRANULOCYTES 1.3 % (0-5); LYMPHOCYTES 4.7 % (15-50); MCH 30.1 pg (26.0-34.0); MCHC 34.4 g/dL (31.0-37.0); MCV 87.3 fL (80.0-100.0); MONOCYTES 1.7 % (2-11); NEUTROPHILS 92.2 % (40-80); RBC 3.46 10x6/uL (4.00-5.40); RDW 13.7 % (11.5-14.5); WBC 17.4 10x3/uL (4.8-10.8)
[2020-03-15 04:38] LABS: PLATELET COUNT 73 10x3/uL (130-400)
[2020-03-15 05:01] LABS: PLATELET ESTIMATE DECREASED
[2020-03-15 05:14] LABS: ALBUMIN 1.5 g/dL (3.4-5.0); BILIRUBIN - TOTAL 0.34 mg/dL (0.2-1.3); MAGNESIUM - SERUM 1.9 mg/dL (1.8-2.4); POTASSIUM - SERUM 4.4 mmol/L (3.5-5.1); PROTEIN - SERUM 5.1 g/dL (6.4-8.2)
[2020-03-15 05:18] LABS: ANION GAP 16.7 mmol/L (8-16); CARBON DIOXIDE 22.7 mmol/L (21.0-32.0); CREATININE - SERUM 3.2 mg/dL (0.6-1.3); PHOSPHOROUS 9.2 mg/dL (2.5-4.9)
[2020-03-15 05:21] LABS: CALCIUM 6.6 mg/dL (8.5-10.1)
--- NOTE | 2020-03-15 05:39 | NUR ---
CORRECTED CALCIUM 8.6.
[2020-03-15 13:54] LABS: HEMOGLOBIN 10.3 g/dL (12-16)
[2020-03-15 21:22] LABS: HEMATOCRIT 29.9 % (36.0-48.0); HEMOGLOBIN 10.3 g/dL (12-16)
[2020-03-16] VITALS (41 sets, daily range): BP systolic 65–147; BP diastolic 41–93
--- NOTE | 2020-03-16 05:32 | NUR ---
REINFORCED CHEST TUBE DRESSING. MODERATE AMOUNT OF BLOOD LOSS
--- NOTE | 2020-03-16 06:08 | NUR ---
RECTAL TUBE PLACED
[2020-03-16 06:35] LABS: BILIRUBIN - TOTAL 0.27 mg/dL (0.2-1.3); CREATININE - SERUM 2.9 mg/dL (0.6-1.3); PROTEIN - SERUM 4.3 g/dL (6.4-8.2)
[2020-03-16 06:36] LABS: ALBUMIN 1.1 g/dL (3.4-5.0); ANION GAP 22.8 mmol/L (8-16); CALCIUM 5.3 mg/dL (8.5-10.1); CARBON DIOXIDE 14.8 mmol/L (21.0-32.0); POTASSIUM - SERUM 3.6 mmol/L (3.5-5.1)
[2020-03-16 06:51] LABS: HEMATOCRIT 25.8 % (36.0-48.0); HEMOGLOBIN 8.9 g/dL (12-16); MCH 30.5 pg (26.0-34.0); MCHC 34.5 g/dL (31.0-37.0); MCV 88.4 fL (80.0-100.0); MEAN PLATELET VOLUME 11.5 fL (7.4-10.4); PLATELET COUNT 87 10x3/uL (130-400); RBC 2.92 10x6/uL (4.00-5.40); RDW 14.1 % (11.5-14.5); WBC 20.3 10x3/uL (4.8-10.8)
--- NOTE | 2020-03-16 07:30 | NUR ---
PT RESTING COMFORTABLE, ORAL CARE PROVIDED AND SECREATIONS SUCTIONED, HOB ELEVATED, WILL MONITOR
[2020-03-16 08:15] LABS: LYMPHOCYTES 4 % (15-50); MONOCYTES 4 % (2-11); NEUTROPHILS 82 % (40-80); PLATELET ESTIMATE DECREASED
--- NOTE | 2020-03-16 11:50 | NUR ---
TONNY 2, DIPROVAN DECREASED TO 40MCG/KG/MIN, WILL MONITOR
--- NOTE | 2020-03-16 12:39 | NUR ---
Nutrition follow-up: Pt intubated, sedated with propofol @ 21.6 ml/hr Nepro infusing via NGT @ 40 ml/hr Rectal tube placed Labs reviewed WT: 141# Pt meeting/exceeding estimated energy needs at this time. If propofol continues to increase will need to decrease TF rate. RDN following.
--- NOTE | 2020-03-16 14:20 | NUR ---
resting comfortable, no acute distress noted, rita hebert
[2020-03-16 16:48] LABS: APTT 41.5 SECONDS (22.8-39.4); INR 1.14 (0.85-1.17); PROTIME 14.5 SECONDS (11.6-15.0)
--- NOTE | 2020-03-16 16:55 | NUR ---
PT HAS GONE DOWN TO INTERVENTIONAL RADIOLOGY
--- NOTE | 2020-03-16 18:10 | NUR ---
PT BACK FROM IR, SECOND CHEST TUBE NOTED, RIGHT POSTERIOR TO 20 SX, DRESSING CDI, COMPLETE BED BATH GIVEN AND LINENS CHANGED AT THIS TIME, DIPROVAN AT 20MCG/KG/MIN, POSITIONED FOR COMFORT, WILL MONITOR
--- NOTE | 2020-03-16 18:25 | NUR ---
BP 72/45, PT STARTED ON LEVOPHED DRIP AT 5MCG/MIN, WILL MONITOR
--- NOTE | 2020-03-16 18:30 | NUR ---
BP 77/44, LEVOPHED INCREASED TO 6MCG/MIN 1835: BP 76/46, LEVOPHED INCREASED TO 7MCG/MIN 1837: BP 76/41, LEVOPHED INCREASED TO 8MCG/MIN 1840: BP 72/44, LEVOPHED INCREASED TO 9MCG/MIN 1845: BP 71/41, LEVOPHED INCREASED TO 10MCG/MIN
--- NOTE | 2020-03-16 18:50 | NUR ---
BP 79/47, LEVOPHED DRIP INCREASED TO 11MCG/MIN
--- NOTE | 2020-03-17 03:04 | NUR ---
2345 PT HAS CARDIAC RHYTHM CHANGE. 2349 PT SHOWS ASYSTOLE ON THE ECG MONITOR. NO PALPABLE PULSE AT THIS TIME. CODE BLUE INITIATED. SEE CODE BLUE SHEET. KASSI, PRIMARY PICKUP DRIVER, PRESENT. DR ZIMMERMAN NOTIFIED OF CODE IN PROGRESS PER KASSI. 0018 DR HUTCHISON CALLED TIME OF . 0029 JULIET NOTIFIED. REF# [id number] PT PRESENT. CELL PHONE DISINFECTED AND RETURNED TO HIM. NO OTHER VALUABLES. 0240 [facility] NOTIFIED TO TRANSCRIPTION TYPIST PER FAMILY REQUEST
--- NOTE | 2020-03-17 16:42 | NUR ---
Per CMS protocol, restraint report logged into data base.
--- NOTE | 2020-03-17 18:19 | MORECARE ---
CASE MANAGEMENT DISCHARGE SUMMARY PATIENT: KELSEA JONES UNIT: [id number] ADM DATE: 03/08/20 AGE: 64 : 53 SEX: F ROOM/BED: D.[facility] AUTHOR: RICHARD MICHAUD PHYSICIAN: REFERRING PHYSICIAN: OTONIEL CAI MD DATE OF SERVICE: 03/17/20 Discharge Plan Patient Name: KELSEA JONES Facility: [facility]:[place] : 1955 Planned Disposition: Anticipated Discharge Date: Discharge Date: 03/17/2020 Expected LOS: Initial Reviewer: [email or web address] Initial Review Date: 03/08/2020 Generated: 03/17/20 7:19 pm Patient Name: KELSEA JONES Page [phone] at 1819 All edits/amendments must be made on the electronic document DICTATION DATE: 03/17/201818 ASPHALT DISTRIBUTOR TENDER: PATIENCE 03/17/201818 RPT#: [id number] DC DATE:03/17/20 STATUS: DIS IN [facility] [address] [place] [address] END OF REPORT
[2020-03-19 15:15] VITALS: Ht 149.9 cm; Wt 64.1 kg
== END 2020-03-17 00:18 | DRG 207 ==
LOC: D.ICU 22:25
PROVIDERS: Family Medicine; General Practice; Internal Medicine Pulmonary Disease; ADMIT Family Medicine; ATTEND Family Medicine
PROC: 06HM33Z Insertion of Infusion Device into Right Femoral Vein, Percutaneous Approach (ICD-10-PCS; principal; 2020-03-09)
PROC: 5A1955Z Respiratory Ventilation, Greater than 96 Consecutive Hours (ICD-10-PCS; 2020-03-12)
PROC: 0BH17EZ Insertion of Endotracheal Airway into Trachea, Via Natural or Artificial Opening (ICD-10-PCS; 2020-03-12)
PROC: 03HY33Z Insertion of Infusion Device into Upper Artery, Percutaneous Approach (ICD-10-PCS; 2020-03-12)
PROC: 0W9930Z Drainage of Right Pleural Cavity with Drainage Device, Percutaneous Approach (ICD-10-PCS; 2020-03-16)
DX: U07.1 COVID-19 (principal); J12.89 Other viral pneumonia; J96.01 Acute respiratory failure with hypoxia; G93.41 Metabolic encephalopathy; N17.0 Acute kidney failure with tubular necrosis; N18.4 Chronic kidney disease, stage 4 (severe); E87.0 Hyperosmolality and hypernatremia; J81.1 Chronic pulmonary edema; J93.9 Pneumothorax, unspecified; Z99.2 Dependence on renal dialysis; Z86.73 Personal history of transient ischemic attack (TIA), and cerebral infarction without residual deficits; E78.5 Hyperlipidemia, unspecified; E11.22 Type 2 diabetes mellitus with diabetic chronic kidney disease; I12.9 Hypertensive chronic kidney disease with stage 1 through stage 4 chronic kidney disease, or unspecified chronic kidney disease; E87.5 Hyperkalemia; R77.8 Other specified abnormalities of plasma proteins; J44.9 Chronic obstructive pulmonary disease, unspecified; E11.21 Type 2 diabetes mellitus with diabetic nephropathy; Z87.891 Personal history of nicotine dependence; I25.2 Old myocardial infarction; D64.9 Anemia, unspecified